=== PATIENT | female | born 2000 | race Caucasian/White ===

== ENCOUNTER 2021-09-03 22:37 | Emergency (ER) | payer MEDICAID, SELFPAY ==
[2021-09-03 22:57] VITALS: BP 123/78; PULSE 108; RESP 16; TEMP 36.7; O2SAT 92; BMI 18.8
--- NOTE | 2021-09-03 22:59 | XRR_ITS ---
PROCEDURE INFORMATION: Exam: XR Chest Exam date and time: 09/03/2021 10:59 PM Age: 20 years old Clinical indication: Fever; Prior surgery; Additional info: Fever, emesis TECHNIQUE: Imaging protocol: XR of the chest. Views: 1 view. COMPARISON: No relevant prior studies available. FINDINGS: Lungs: Low lung volumes due to suboptimal inspiration. This causes crowding of the lung markings. No consolidative pulmonary infiltrates are noted. Pleural spaces: No pleural effusion. No pneumothorax. Heart/Mediastinum: No cardiomegaly. Bones/joints: Scoliosis and postop change of the spine. XR/XR chest 1V portable [id number] IMPRESSION: 1. Low lung volumes due to suboptimal inspiration. This causes crowding of the lung markings. 2. No acute consolidative pulmonary infiltrate demonstrated. Radiation Dose CTDIVOL = (mGy): DLP = (mGy-cm)
--- NOTE | 2021-09-03 22:59 | XRR_ITS ---
PROCEDURE INFORMATION: Exam: XR Abdomen Exam date and time: 09/03/2021 10:59 PM Age: 20 years old Clinical indication: Vomiting; Prior surgery; Additional info: Emesis TECHNIQUE: Imaging protocol: XR of the abdomen. Views: Frontal supine view of the abdomen. 1 View. COMPARISON: CR XR chest 1V portable [id number] 09/03/2021 11:28 PM FINDINGS: Tubes, catheters and devices: Left upper quadrant gastrostomy tube noted, overlying the stomach. Gastrointestinal tract: Large amount of retained stool throughout the colon suggesting constipation. Nonobstructive intestinal gas pattern demonstrated. No small bowel dilatation noted. Bones/joints: Scoliosis and postop change of the spine. 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 XR/XR KUB [id number] IMPRESSION: 1. Large amount of retained stool throughout the colon suggesting constipation. 2. Nonobstructive intestinal gas pattern demonstrated. Radiation Dose CTDIVOL = (mGy): DLP = (mGy-cm)
--- NOTE | 2021-09-03 23:01 | W.ED.ABDPA2 ---
HPI - Abdominal Pain General: Chief Complaint: Nausea/Vomiting/Diarrhea Stated Complaint: vomiting, high fever Time Seen by Provider: 09/03/21 22:59 History of Present Illness: HPI narrative: 20-year-old female comes in today with complaints of nausea and vomiting. Mother believes that she is constipated which is causing her to be sick to her stomach. Patient is a severe developmental delayed patient with a history of hydrocephalus and seizures. Patient requires full care for mother since . Patient does get G-tube feedings. Patient appears mildly unwell but not toxic. Patient appears in no pain. Associated Symptoms: Reports constipation and vomiting Review of Systems General: Reports: 10 or more systems reviewed and unremarkable except in HPI and below GI: Reports: vomiting and constipation PFS ED PFSH: Medical History (Updated 09/04/21 @ 01:00 by PRIMITIVO Mckeon) Epilepsy Femur fracture Hip dysplasia History of gastrostomy tube placement Hydrocephalus Mentally disabled Surgical History (Updated 08/10/21 @ 11:02 by Kristina Rivera DO) H/O craniotomy H/O spinal fusion Family History Mother Hypertension Father Hypertension Grandmother Diabetes Hypertension Grandfather Diabetes Hypertension Social History Smoking and tobacco status: never smoked Second hand smoke exposure: No Alcohol intake: never Adopted: No Caregiver/support person: Yes Lives independently: No Household members: family Housing: Manufactured/Mobile home Marital status: Single Number of children: 0 Education level details: Adult daycare service: No Current occupational status: disabled Current occupational exposures/hazards: No Pets and animals: No History of recent travel: No Sexually active: No Current gender identity: Female Physical Exam Const: COMMON NORMALS: no acute distress HENMT: COMMON NORMALS: normocephalic, TM's normal bilaterally and Normal external nose present HEAD & SCALP: normal to inspection and normocephalic NOSE: Normal external nose present TYMPANIC MEMBRANE: TM's normal bilaterally MOUTH: Normal oral and palatal mucosa present Eye: GENERAL EYE: appearance normal, both eyes and all related structures Neck/C-Spine: COMMON NORMALS: full ROM Chest: COMMONS NORMALS: normal inspection of the chest Resp: COMMON NORMALS: normal respiratory effort Cardio: COMMON NORMALS: regular rate and regular rhythm RATE: regular rate RHYTHM: regular rhythm GI: COMMON NORMALS: Soft to palpation and non-tender AUSCULTATION: Yes normoactive bowel sounds PALPATION: Yes Soft to palpation Back/Pelvis: COMMON NORMALS: thoracic and lumbar spine normal to inspection Extremity: COMMON NORMALS: normal to inspection Neuro: COMMON NORMALS: moves all extremities Psych: COMMON NORMALS: mental status grossly normal and cooperative Skin: COMMON NORMALS: no rashes or lesions noted GENERAL SKIN EXAM: no rashes or lesions noted Course Vital Signs: Vital signs: Vital Signs Temperature 98.1 F 09/03/21 22:57 Pulse Rate 108 H 09/03/21 22:57 Respiratory Rate 16 09/03/21 22:57 Blood Pressure 123/78 09/03/21 22:57 Pulse Oximetry 92 09/03/21 22:57 MDM - Abdominal Pain MDM Narrative: Medical decision making narrative: 20-year-old female brought in by mother for concerns of nausea and vomiting. On exam abdomen soft with some bowel sounds. Skin is warm and dry. Vital signs are normal except for some mild elevation in pulse at 108. Differential diagnosis includes but not limited to bowel obstruction, constipation, urinary tract infection, sepsis. Laboratory values noted a 16,000 white count, sodium potassium 134 and 3.3. Chest x-ray was unremarkable. KUB noted constipation without signs of bowel obstruction. Urinalysis had positive nitrates and significant number of WBCs. Patient was given 1 g of ceftriaxone IV. Patient was given ondansetron for nausea and vomiting with good control. Patient will be continue with cephalexin and ondansetron at home. Reviewed recommendations for MiraLAX for constipation. Mother reports understanding and agreed to plan. Lab Data: Labs: Lab Results 09/03/21 09/03/21 09/03/21 23:20 23:20 23:20 WBC 16.7 10^3/uL H 10 ^3/uL (4.0-10.0) RBC 4.55 10^6/uL 10^6 /uL (4.1-5.3) Hgb 13.5 g/dL g/dL (11.5-15.3) Hct 40.1 % % (37.0-47.0) MCV 88.1 fl fl (81-99) MCH 29.7 pg pg (28.0-34.0) MCHC 33.7 g/dL g/dL (30.0-36.0) RDW 11.9 % L % (12.1-15.1) Plt Count 230 10^3/cmm 10^3 /cmm (130-400) MPV 9.3 fL fL (7.4-10.4) Neut % (Auto) 77.6 % % Lymph % (Auto) 9.0 % % [place] % (Auto) 11.9 % % Eos % (Auto) 0.8 % % Baso % (Auto) 0.2 % % Neut # (Auto) 12.96 10^3/uL H 1 0^3/uL (1.8-7.7) Lymph # (Auto) 1.5 10^3/uL 10^3/ uL (0.8-4.8) [place] # (Auto) 2.0 10^3/uL H 10^ 3/uL (0.2-0.9) Eos # (Auto) 0.1 10^3/uL 10^3/ uL (0.0-0.8) Baso # (Auto) 0.0 10^3/uL 10^3/ uL (0.0-0.1) Nucleated RBC % (a uto) 0 % % Nucleated RBCs # 0.0 /100WBC /100W BC Sodium 134 mmol/L L mmol /L (136-145) Potassium 3.3 mmol/L L mmol /L (3.5-5.1) Chloride 101 mmol/L mmol/L (98-107) Carbon Dioxide 19 mmol/L L mmol/ L (22-29) Anion Gap 17.3 (5-19) BUN 6 mg/dL mg/dL (6-20) Creatinine 0.2 mg/dL L mg/dL (0.5-0.9) GFR Calculation 444.2 mL/min H mL /min (90-130) Glucose 140 mg/dL H mg/dL (65-115) Calculated Osmolal ity 278 mOsm/kg L mOs m/kg (285-295) Calcium 8.5 mg/dL mg/dL (8.5-10.5) Total Bilirubin 0.4 mg/dL mg/dL (0.15-1.2) AST 10 U/L U/L (0-32) ALT 12 U/L U/L (0-33) Alkaline Phosphata se 79 IU/L IU/L (35-105) Total Protein 6.4 g/dL L g/dL (6.6-8.7) Albumin 4.2 g/dL g/dL (3.5-5.2) Globulin 2.2 g/dL g/dL (1.3-4.6) HCG, Qual Negative (Negative) Urine Color Urine Appearance Urine pH Ur Specific Gravit y Urine Protein Urine Glucose (UA) Urine Ketones Urine Blood Urine Nitrate Urine Bilirubin Urine Urobilinogen Ur Leukocyte Maria Isabel ase Urine RBC Urine WBC Ur Squamous Epith Cells Amorphous Sediment Urine Bacteria Influenza Type A A g Influenza Type B A g SARS-CoV-2 Ag (Rap id) 09/03/21 09/03/21 09/03/21 23:45 23:45 23:45 WBC RBC Hgb Hct MCV MCH MCHC RDW Plt Count MPV Neut % (Auto) Lymph % (Auto) [place] % (Auto) Eos % (Auto) Baso % (Auto) Neut # (Auto) Lymph # (Auto) [place] # (Auto) Eos # (Auto) Baso # (Auto) Nucleated RBC % (a uto) Nucleated RBCs # Sodium Potassium Chloride Carbon Dioxide Anion Gap BUN Creatinine GFR Calculation Glucose Calculated Osmolal ity Calcium Total Bilirubin AST ALT Alkaline Phosphata se Total Protein Albumin Globulin HCG, Qual Urine Color Yellow (Yellow) Urine Appearance Hazy A (CLEAR) Urine pH 5 (5-7) Ur Specific Gravit y 1.010 (1.005-1.030) Urine Protein Neg (Negative) Urine Glucose (UA) Norm (Normal) Urine Ketones Negative (Negative) Urine Blood 2+ H (Negative) Urine Nitrate Positive H (Negative) Urine Bilirubin Neg (Negative) Urine Urobilinogen Neg mg/dL mg/dL (Negative) Ur Leukocyte Maria Isabel ase 1+ H (Negative) Urine RBC 5-10 /hpf H /hpf (0-2) Urine WBC 15-25 /hpf H /hpf (0-5) Ur Squamous Epith Cells 5-10 /hpf H /hpf (0-5) Amorphous Sediment Not Reportable Urine Bacteria 4+ /hpf H /hpf (NONE) Influenza Type A A g Negative (Negative) Influenza Type B A g Negative (Negative) SARS-CoV-2 Ag (Rap id) Negative (Negative) Discharge Plan Discharge Patient Disposition: Home Clinical Impression: UTI (urinary tract infection) Qualifiers: Urinary tract infection type: site unspecified Hematuria presence: without hematuria Qualified Code(s): N39.0 - Urinary tract infection, site not specified Constipation Qualifiers: Constipation type: unspecified constipation type Qualified Code(s): K59.00 - Constipation, unspecified Condition: Stable Prescriptions: New ondansetron HCl 4 mg/5 mL solution 4 mg feeding tube Q8H PRN (Reason: nausea and vomiting) 5 Days Qty: 60 RF: 0 cephalexin 250 mg/5 mL suspension for reconstitution 500 mg feeding tube Q8H 7 Days Qty: 210 RF: 0 Miralax 17 gram/dose powder 17 g feeding tube BID Qty: 238 RF: 0 No Action lamotrigine 25 mg tablet 50 mg PO DAILY RF: 0 lamotrigine 200 mg tablet 200 mg PO BID RF: 0 cholecalciferol (vitamin D3) 50 mcg (2,000 unit) capsule 50 mcg PO DAILY RF: 0 ferrous sulfate [Iron (ferrous sulfate)] 325 mg (65 mg iron) tablet 325 mg PO DAILY RF: 0 rufinamide [Banzel] 400 mg tablet 800 mg PO BID RF: 0 chucks See Rx Instructions .ROUTE .COMPLEX Qty: 90 RF: 2 Discharge Orders: Discharge ED (Routine); Ordered 09/04/21 Ordered By: Bill Goldman Referrals: Kim Muñoz MD [Family Provider] - Kristina Rivera DO [Primary Care Provider] - Discharge Diet: Usual diet Discharge Activity: Increase activity as tolerated Patient Instructions: Constipation (ED), Urinary Tract Infection in Women (ED), Opioid Safety Activity Restrictions/Additional Instructions: Activity as tolerated. Maintain routine care. Use MiraLAX twice daily until bowel movements are regular. After that you can wait turn to just once daily. Give antibiotic 10 mL per feeding tube 3 times a day for 7 days. Use ondansetron 5 mL every 8 hours as needed for nausea or vomiting. Return to the ER for persistent fever greater than 100.4, persistent vomiting, or new concerns. Coding Level of Care Code ED Habilitative Interventionist for Sarah Hanna
[2021-09-03] MEDS: sodium chloride 0.9% 1,000 ML 999 ML IV (23:30)
[2021-09-03 23:33] LABS: Basophils % 0.2 %; Eosinophils # 0.1 10^3/uL (0.0-0.8); Eosinophils % 0.8 %; Hematocrit 40.1 % (37.0-47.0); Hemoglobin 13.5 g/dL (11.5-15.3); Lymphocytes # 1.5 10^3/uL (0.8-4.8); Mean Corpuscular HGB Conc 33.7 g/dL (30.0-36.0); Mean Corpuscular Hemoglobin 29.7 pg (28.0-34.0); Mean Corpuscular Volume 88.1 fl (81-99); Mean Platelet Volume 9.3 fL (7.4-10.4); Monocytes % 11.9 %; Neutrophils # 12.96 10^3/uL (1.8-7.7); Neutrophils % 77.6 %; Nucleated Red Blood Cells % 0 %; Platelet Count 230 10^3/cmm (130-400); Red Blood Count 4.55 10^6/uL (4.1-5.3); Red Cell Distribution Width 11.9 % (12.1-15.1); White Blood Count 16.7 10^3/uL (4.0-10.0)
[2021-09-03 23:52] LABS: HCG, Serum Qual Negative (Negative)
[2021-09-04] LABS: Alanine Aminotransferase 12 U/L (0-33); Albumin Level 4.2 g/dL (3.5-5.2); Alkaline Phosphatase 79 IU/L (35-105); Anion Gap 17.3 (5-19); Aspartate Amino Transferase 10 U/L (0-32); Blood Urea Nitrogen 6 mg/dL (6-20); Calcium 8.5 mg/dL (8.5-10.5); Carbon Dioxide 19 mmol/L (22-29); Chloride 101 mmol/L (98-107); Globulin 2.2 g/dL (1.3-4.6); Glomerular Filtration Rate 444.2 mL/min (90-130); Glucose 140 mg/dL (65-115); Osmolality Calculated 278 mOsm/kg (285-295); Potassium 3.3 mmol/L (3.5-5.1); Sodium 134 mmol/L (136-145); Total Bilirubin 0.4 mg/dL (0.15-1.2); Total Protein 6.4 g/dL (6.6-8.7)
[2021-09-04 00:06] LABS: Glucose Urine UA Norm (Normal); Ketones Urine Negative (Negative); Protein Urine Neg (Negative); Urine Appearance Hazy (CLEAR); Urine Color Yellow (Yellow); pH Urine 5 (5-7)
[2021-09-04 00:07] LABS: Add Urine Microscopic? YES; Bilirubin Urine Neg (Negative); Blood Urine 2+ (Negative); Leukocyte Esterase Urine 1+ (Negative); Nitrate Urine Positive (Negative); Urobilinogen Urine Neg (Negative)
[2021-09-04 00:08] LABS: Add Urine Culture? Yes; Bacteria Urine 4+ /hpf; WBC Urine 15-25 /hpf (0-5)
[2021-09-04] MEDS: ondansetron 2 mg/ML SDV 2 mL 4 MG IVP (00:12)
[2021-09-04 00:20] LABS: Influenza A by IFA Negative (Negative); SARS Covid-2 Antigen Negative (Negative)
[2021-09-04 00:21] LABS: Influenza B by IFA Negative (Negative)
[2021-09-04] MEDS: cefTRIAXone 1,000 MG in sodium chloride 0.9% (plus) 50 ML 100 MG IV (00:48)
[2021-09-04 01:47] VITALS: BP 115/80; PULSE 92; RESP 16; O2SAT 95
== END 2021-09-04 01:48 | disposition home or self-care (01) ==
PROVIDERS: Emergency Provider Nurse Practitioner Family; PCP Family Medicine
DX: N39.0 Urinary tract infection, site not specified (principal); K59.00 Constipation, unspecified; Z20.822 Contact with and (suspected) exposure to COVID-19
CPT/HCPCS: 51701; 71045; 74018; 80053; 81001; 81003; 84703; 85025; 87077; 87086; 87186; 87426; 87804; 96365; 96375; 99284; J0696; J2405; J7030

== ENCOUNTER 2021-09-15 17:16 | Emergency (ER) | payer MEDICAID, SELFPAY ==
[2021-09-15 17:24] VITALS: BP 138/73; PULSE 138; RESP 19; TEMP 36.3; O2SAT 94; BMI 18.8
--- NOTE | 2021-09-15 17:43 | ED_ITS ---
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 At baseline the patient has multiple seizures per day. These are generally tonic-clonic in nature and last a few minutes before spontaneously resolving. The patient requires full cares however is able to eat at times and is interactive. Currently she is on lamotrigine. She has tried other antiepileptics in the past without significant improvement/medication intolerance per chart review and history provided by parents. She does not currently have as needed antiepileptics or seizure terminating medications. She was seen in this emergency department on 09/04 and at that time diagnosed with a urinary tract infection after presenting with change in bowel habits. She completed this course and had been doing well without recurrence of fevers. Approximately 3 days ago she began having increased seizure frequency. Semiology of seizures is typical of her tonic-clonic seizures. These have progressed to the point that she has probably had at least 10-20 seizures per hour today. No other new changes in health or medication reported. No other known specific exacerbating relieving factors. She has had similar clusters of seizures in the past however these have not been very recently. Typically follows with neurology at [facility] in [place], as a child was seen and [place] at [facility]. Did have a period of time where they were in [facility] and fairly recently returned to the area. Review of Systems General: Reports: ROS unobtainable due to medical condition and ROS unobtainable due to mental status PFSH ED PFSH: Medical History Femur fracture Hip dysplasia History of gastrostomy tube placement Hydrocephalus Intractable epilepsy without status epilepticus Mentally disabled Spastic quadriplegic cerebral palsy Surgical History H/O craniotomy H/O spinal fusion Family History Mother Hypertension Father Hypertension Grandmother Diabetes Hypertension Grandfather Diabetes Hypertension Social History Smoking and tobacco status: never smoked Second hand smoke exposure: No Alcohol intake: never Adopted: No Caregiver/support person: Yes Lives independently: No Household members: family Housing: Manufactured/Mobile home Marital status: Single Number of children: 0 Education level details: Adult daycare service: No Current occupational status: disabled Current occupational exposures/hazards: No Pets and animals: No History of recent travel: No Sexually active: No Current gender identity: Female Physical Exam Narrative: EXAM NARRATIVE: GENERAL/CONSTITUTIONAL - chronically ill-appearing. Seizure activity is noted in ED course Eyes -no scleral icterus, no conjunctival injection ENMT - Atraumatic external nose and ears. Moist mucous membranes NECK - supple when not seizing, no evidence of meningismus upon reassessment. trachea midline CARDIOVASCULAR - tachycardic rate and regular rhythm. Normal peripheral perfusion RESPIRATORY -clear to auscultation bilaterally. ABDOMEN/GI - Nontender/Nondistended. G-tube present. MSK -contractures present SKIN - Warm, Dry, no obvious rashes NEURO - seizure activity present Course ED course: - Patient was seen and evaluated by me at bedside upon being called to room for possible seizure activity - Initial evaluation notable for increased tone and extension of left arm concerning for seizure. No IV access at this time and therefore I am medications ordered. - Patient placed on cardiac monitors, IV access obtained - Labs notable for leukocytosis of unclear etiology, may be reactive. No acute metabolic abnormality to explain patient's symptoms. UTI not concerning for urinary tract infection. -Called back to room for additional seizure episode similar to first, IV Ativan given. - Upon serial reexamination after treatment the patient was more relaxed. Her tachycardia had improved however, after discussion with parents, patient is not baseline. - At best baseline the patient is able to eat by mouth. - Given that the patient did not return to baseline I am concerned that the patient has subclinical seizures. I discussed the patient with her primary neurologist colleague who has seen the patient before who recommended transfer for video EEG unfortunately they do not have bed availability. - There was bed availability at [facility], I discussed the case with Dr. Alexander who declined acceptance of transfer for reasons that I am not entirely certain of the. He recommended that the patient be transferred to [facility] where she is typically seen. I explained that they do not have bed availability and that the neurology team there, who is seen the patient, recommended transfer for video EEG and continued seizure management. I explained that the wait list at [facility] was at least 48 hours if not longer and that we do not have capability of video EEG at our facility nor do I have neurology on-call. Despite all this, he declined to accept the transfer. He recommended to bridge with what ever the patient typically has for PRNs or klonipin however the patient does not typically have PRNs when I discussed this with the patient's parents. - The patient has an extensive history of being on various medications which she has had adverse reactions to, however, when it became clear that the patient would likely be in an emergency department for an extended period of time I did order an additional antiepileptic as well as her nighttime dose of her typical antiepileptic. - Patient care handed off to overnight ED physician Dr. Salazar pending continued search for accepting physician/facility with capability of neurology and video EEG for management of this highly complex patient. Vital Signs: Vital signs: Vital Signs Temperature 97.3 F L 09/15/21 17:24 Pulse Rate 72 09/16/21 02:20 Respiratory Rate 18 09/16/21 02:20 Blood Pressure 113/65 09/16/21 02:20 Pulse Oximetry 96 09/16/21 02:20 MDM - Seizure Lab Data: Labs: Lab Results 09/15/21 09/15/21 09/15/21 19:00 19:00 19:00 WBC 17.0 10^3/uL H 10 ^3/uL (4.0-10.0) RBC 4.60 10^6/uL 10^6 /uL (4.1-5.3) Hgb 13.3 g/dL g/dL (11.5-15.3) Hct 40.8 % % (37.0-47.0) MCV 88.7 fl fl (81-99) MCH 28.9 pg pg (28.0-34.0) MCHC 32.6 g/dL g/dL (30.0-36.0) RDW 12.1 % % (12.1-15.1) Plt Count 364 10^3/cmm 10^3 /cmm (130-400) MPV 9.1 fL fL (7.4-10.4) Neut % (Auto) 82.7 % % Lymph % (Auto) 9.1 % % Gillespie % (Auto) 6.8 % % Eos % (Auto) 0.5 % % Baso % (Auto) 0.3 % % Neut # (Auto) 14.02 10^3/uL H 1 0^3/uL (1.8-7.7) Lymph # (Auto) 1.6 10^3/uL 10^3/ uL (0.8-4.8) Gillespie # (Auto) 1.2 10^3/uL H 10^ 3/uL (0.2-0.9) Eos # (Auto) 0.1 10^3/uL 10^3/ uL (0.0-0.8) Baso # (Auto) 0.1 10^3/uL 10^3/ uL (0.0-0.1) Nucleated RBC % (a uto) 0 % % Nucleated RBCs # 0.0 /100WBC /100W BC Sodium 138 mmol/L mmol/L (136-145) Potassium 3.5 mmol/L mmol/L (3.5-5.1) Chloride 102 mmol/L mmol/L (98-107) Carbon Dioxide 21 mmol/L L mmol/ L (22-29) Anion Gap 18.5 (5-19) BUN 8 mg/dL mg/dL (6-20) Creatinine 0.3 mg/dL L mg/dL (0.5-0.9) GFR Calculation 278.2 mL/min H mL /min (90-130) Glucose 95 mg/dL mg/dL (65-115) Calculated Osmolal ity 284 mOsm/kg L mOs m/kg (285-295) Calcium 8.2 mg/dL L mg/dL (8.5-10.5) Total Bilirubin 0.2 mg/dL mg/dL (0.15-1.2) AST 11 U/L U/L (0-32) ALT 18 U/L U/L (0-33) Alkaline Phosphata se 82 IU/L IU/L (35-105) Total Protein 6.4 g/dL L g/dL (6.6-8.7) Albumin 4.4 g/dL g/dL (3.5-5.2) Globulin 2.0 g/dL g/dL (1.3-4.6) TSH 2.14 uIU/mL uIU/m L (0.27-4.20) Urine Color Urine Appearance Urine pH Ur Specific Gravit y Urine Protein Urine Glucose (UA) Urine Ketones Urine Blood Urine Nitrate Urine Bilirubin Urine Urobilinogen Ur Leukocyte Maria Isabel ase Urine RBC Urine WBC Ur Squamous Epith Cells Amorphous Sediment Urine Bacteria Urine Mucus Lamotrigine Cancelled 09/15/21 21:48 WBC RBC Hgb Hct MCV MCH MCHC RDW Plt Count MPV Neut % (Auto) Lymph % (Auto) Gillespie % (Auto) Eos % (Auto) Baso % (Auto) Neut # (Auto) Lymph # (Auto) Gillespie # (Auto) Eos # (Auto) Baso # (Auto) Nucleated RBC % (a uto) Nucleated RBCs # Sodium Potassium Chloride Carbon Dioxide Anion Gap BUN Creatinine GFR Calculation Glucose Calculated Osmolal ity Calcium Total Bilirubin AST ALT Alkaline Phosphata se Total Protein Albumin Globulin TSH Urine Color Yellow (Yellow) Urine Appearance Clear (CLEAR) Urine pH 5 (5-7) Ur Specific Gravit y 1.015 (1.005-1.030) Urine Protein 1+ H (Negative) Urine Glucose (UA) Norm (Normal) Urine Ketones 1+ H (Negative) Urine Blood Neg (Negative) Urine Nitrate Negative (Negative) Urine Bilirubin Neg (Negative) Urine Urobilinogen Norm mg/dL mg/dL (Negative) Ur Leukocyte Maria Isabel ase Negative (Negative) Urine RBC 0-4 /hpf H /hpf (0-2) Urine WBC 0-4 /hpf H /hpf (0-5) Ur Squamous Epith Cells 0-4 /hpf H /hpf (0-5) Amorphous Sediment Not Reportable Urine Bacteria Trace /hpf /hpf (NONE) Urine Mucus 1+ /hpf /hpf Lamotrigine Critical Care Time Critical Care Time: Critical Care Time: Yes Total Critical Care Time: 45 Attestation: This case had a high probability of a clinically significant, sudden, or life threatening deterioration of this patient's condition which required my full and direct attention, intervention and personal management. Discharge Plan Discharge Patient Disposition: Home Clinical Impression: Generalized seizure Condition: Stable Prescriptions: New Diastat 2.5 mg kit 7.5 mg OK Q12H PRN (Reason: seizure activity) Qty: 1 RF: 0 No Action lamotrigine 25 mg tablet 50 mg PO DAILY RF: 0 lamotrigine 200 mg tablet 200 mg PO BID RF: 0 cholecalciferol (vitamin D3) 50 mcg (2,000 unit) capsule 50 mcg PO DAILY RF: 0 ferrous sulfate [Iron (ferrous sulfate)] 325 mg (65 mg iron) tablet 325 mg PO DAILY RF: 0 rufinamide [Banzel] 400 mg tablet 800 mg PO BID RF: 0 chucks See Rx Instructions .ROUTE .COMPLEX Qty: 90 RF: 2 Miralax 17 gram/dose powder 17 g feeding tube BID Qty: 238 RF: 0 Discharge Orders: Discharge ED (Routine); Ordered 09/16/21 Ordered By: Shay Salazar Referrals: Kristina Rivera DO [Primary Care Provider] - Discharge Diet: Advance as tolerated Discharge Activity: Increase activity as tolerated Patient Instructions: Recurrent Seizures in Adults (ED) Activity Restrictions/Additional Instructions: Return for alteration in mental status, continued seizure activity, return if you must use the Diastat to break his seizure. Return for fever greater than 100, any other concerning symptoms. Coding Level of Care Code ED Tile Mason for Chg Fwd Documented by User: Shay Salazar DO 09/16/21 02:09 HPI - Seizure General: Chief Complaint: Seizure Stated Complaint: Seisures Time Seen by Provider: 09/15/21 17:43 PFSH ED PFSH: Medical History Femur fracture Hip dysplasia History of gastrostomy tube placement Hydrocephalus Intractable epilepsy without status epilepticus Mentally disabled Spastic quadriplegic cerebral palsy Surgical History H/O craniotomy H/O spinal fusion Family History Mother Hypertension Father Hypertension Grandmother Diabetes Hypertension Grandfather Diabetes Hypertension Social History Smoking and tobacco status: never smoked Second hand smoke exposure: No Alcohol intake: never Adopted: No Caregiver/support person: Yes Lives independently: No Household members: family Housing: Manufactured/Mobile home Marital status: Single Number of children: 0 Education level details: Adult daycare service: No Current occupational status: disabled Current occupational exposures/hazards: No Pets and animals: No History of recent travel: No Sexually active: No Current gender identity: Female Course ED course: 20-year-old female checked out to me by Dr. Srivastava at shift change. This patient has cerebral palsy and tonic-clonic seizures. She has had them chronically. She has multiple seizures per day. Her work-up this afternoon did not reveal a definite cause of her increased seizure frequency and duration today. The patient received Versed, followed by IV Ativan for seizures. She has been resting comfortably for the past 6 hours or so without any seizures. She is given her lamotrigine, which she normally takes for seizures. Level is pending. Keppra was ordered, but patient's mother adamantly refused, as the patient has been combative in the past with Keppra administration. I had a long discussion with the mother over the patient's ER course. The previous physician had discussed the patient's case with [facility] neurology in [place] who has seen her in the past. Recommendation was for video EEG studies given her increase in seizures without definite cause. They, however, do not have a bed available, and states that it could be 24 to 48 hours before they may. He also spoke with neurology at [facility], who may or may not have had a bed, but declined admission. After discussing all of this with the mother, and the fact that the patient has not had any more seizures since administration of Ativan and lamotrigine, the mother would like to take the patient home. I advised to strongly against that, and that the patient really should have further investigations of her increased seizure activity in the hospital setting. The mother, however, has been dealing with this patient's seizures for years, and feels that she is safe to go home. Has the mother seems reasonable, and knows her daughter, I will not make her sign an AMA form. We will allow discharge with rectal Diastat, to promptly return if seizures continue, or if the mother has to use Diastat on the patient. Vital Signs: Vital signs: Vital Signs Temperature 97.3 F L 09/15/21 17:24 Pulse Rate 72 09/16/21 02:20 Respiratory Rate 18 09/16/21 02:20 Blood Pressure 113/65 09/16/21 02:20 Pulse Oximetry 96 09/16/21 02:20 MDM - Seizure Lab Data: Labs: Lab Results 09/15/21 09/15/21 09/15/21 19:00 19:00 19:00 WBC 17.0 10^3/uL H 10 ^3/uL (4.0-10.0) RBC 4.60 10^6/uL 10^6 /uL (4.1-5.3) Hgb 13.3 g/dL g/dL (11.5-15.3) Hct 40.8 % % (37.0-47.0) MCV 88.7 fl fl (81-99) MCH 28.9 pg pg (28.0-34.0) MCHC 32.6 g/dL g/dL (30.0-36.0) RDW 12.1 % % (12.1-15.1) Plt Count 364 10^3/cmm 10^3 /cmm (130-400) MPV 9.1 fL fL (7.4-10.4) Neut % (Auto) 82.7 % % Lymph % (Auto) 9.1 % % Gillespie % (Auto) 6.8 % % Eos % (Auto) 0.5 % % Baso % (Auto) 0.3 % % Neut # (Auto) 14.02 10^3/uL H 1 0^3/uL (1.8-7.7) Lymph # (Auto) 1.6 10^3/uL 10^3/ uL (0.8-4.8) Gillespie # (Auto) 1.2 10^3/uL H 10^ 3/uL (0.2-0.9) Eos # (Auto) 0.1 10^3/uL 10^3/ uL (0.0-0.8) Baso # (Auto) 0.1 10^3/uL 10^3/ uL (0.0-0.1) Nucleated RBC % (a uto) 0 % % Nucleated RBCs # 0.0 /100WBC /100W BC Sodium 138 mmol/L mmol/L (136-145) Potassium 3.5 mmol/L mmol/L (3.5-5.1) Chloride 102 mmol/L mmol/L (98-107) Carbon Dioxide 21 mmol/L L mmol/ L (22-29) Anion Gap 18.5 (5-19) BUN 8 mg/dL mg/dL (6-20) Creatinine 0.3 mg/dL L mg/dL (0.5-0.9) GFR Calculation 278.2 mL/min H mL /min (90-130) Glucose 95 mg/dL mg/dL (65-115) Calculated Osmolal ity 284 mOsm/kg L mOs m/kg (285-295) Calcium 8.2 mg/dL L mg/dL (8.5-10.5) Total Bilirubin 0.2 mg/dL mg/dL (0.15-1.2) AST 11 U/L U/L (0-32) ALT 18 U/L U/L (0-33) Alkaline Phosphata se 82 IU/L IU/L (35-105) Total Protein 6.4 g/dL L g/dL (6.6-8.7) Albumin 4.4 g/dL g/dL (3.5-5.2) Globulin 2.0 g/dL g/dL (1.3-4.6) TSH 2.14 uIU/mL uIU/m L (0.27-4.20) Urine Color Urine Appearance Urine pH Ur Specific Gravit y Urine Protein Urine Glucose (UA) Urine Ketones Urine Blood Urine Nitrate Urine Bilirubin Urine Urobilinogen Ur Leukocyte Maria Isabel ase Urine RBC Urine WBC Ur Squamous Epith Cells Amorphous Sediment Urine Bacteria Urine Mucus Lamotrigine Cancelled 09/15/21 21:48 WBC RBC Hgb Hct MCV MCH MCHC RDW Plt Count MPV Neut % (Auto) Lymph % (Auto) Gillespie % (Auto) Eos % (Auto) Baso % (Auto) Neut # (Auto) Lymph # (Auto) Gillespie # (Auto) Eos # (Auto) Baso # (Auto) Nucleated RBC % (a uto) Nucleated RBCs # Sodium Potassium Chloride Carbon Dioxide Anion Gap BUN Creatinine GFR Calculation Glucose Calculated Osmolal ity Calcium Total Bilirubin AST ALT Alkaline Phosphata se Total Protein Albumin Globulin TSH Urine Color Yellow (Yellow) Urine Appearance Clear (CLEAR) Urine pH 5 (5-7) Ur Specific Gravit y 1.015 (1.005-1.030) Urine Protein 1+ H (Negative) Urine Glucose (UA) Norm (Normal) Urine Ketones 1+ H (Negative) Urine Blood Neg (Negative) Urine Nitrate Negative (Negative) Urine Bilirubin Neg (Negative) Urine Urobilinogen Norm mg/dL mg/dL (Negative) Ur Leukocyte Maria Isabel ase Negative (Negative) Urine RBC 0-4 /hpf H /hpf (0-2) Urine WBC 0-4 /hpf H /hpf (0-5) Ur Squamous Epith Cells 0-4 /hpf H /hpf (0-5) Amorphous Sediment Not Reportable Urine Bacteria Trace /hpf /hpf (NONE) Urine Mucus 1+ /hpf /hpf Lamotrigine Discharge Plan Discharge Patient Disposition: Home Clinical Impression: Generalized seizure Condition: Stable Prescriptions: New Diastat 2.5 mg kit 7.5 mg OK Q12H PRN (Reason: seizure activity) Qty: 1 RF: 0 No Action lamotrigine 25 mg tablet 50 mg PO DAILY RF: 0 lamotrigine 200 mg tablet 200 mg PO BID RF: 0 cholecalciferol (vitamin D3) 50 mcg (2,000 unit) capsule 50 mcg PO DAILY RF: 0 ferrous sulfate [Iron (ferrous sulfate)] 325 mg (65 mg iron) tablet 325 mg PO DAILY RF: 0 rufinamide [Banzel] 400 mg tablet 800 mg PO BID RF: 0 chucks See Rx Instructions .ROUTE .COMPLEX Qty: 90 RF: 2 Miralax 17 gram/dose powder 17 g feeding tube BID Qty: 238 RF: 0 Discharge Orders: Discharge ED (Routine); Ordered 09/16/21 Ordered By: Shay Salazar Referrals: Kristina Rivera DO [Primary Care Provider] - Discharge Diet: Advance as tolerated Discharge Activity: Increase activity as tolerated Patient Instructions: Recurrent Seizures in Adults (ED) Activity Restrictions/Additional Instructions: Return for alteration in mental status, continued seizure activity, return if you must use the Diastat to break his seizure. Return for fever greater than 100, any other concerning symptoms. Coding Level of Care Code ED Tile Mason for Sarah Hanna
[2021-09-15] MEDS: midazolam 1 mg/mL INJ 2 mL 5 MG IM (18:10)
[2021-09-15 19:04] LABS: Basophils # 0.1 10^3/uL (0.0-0.1); Basophils % 0.3 %; Eosinophils # 0.1 10^3/uL (0.0-0.8); Eosinophils % 0.5 %; Hematocrit 40.8 % (37.0-47.0); Hemoglobin 13.3 g/dL (11.5-15.3); Lymphocytes # 1.6 10^3/uL (0.8-4.8); Lymphocytes % 9.1 %; Mean Corpuscular HGB Conc 32.6 g/dL (30.0-36.0); Mean Corpuscular Hemoglobin 28.9 pg (28.0-34.0); Mean Corpuscular Volume 88.7 fl (81-99); Mean Platelet Volume 9.1 fL (7.4-10.4); Monocytes # 1.2 10^3/uL (0.2-0.9); Monocytes % 6.8 %; Neutrophils # 14.02 10^3/uL (1.8-7.7); Neutrophils % 82.7 %; Nucleated Red Blood Cells % 0 %; Platelet Count 364 10^3/cmm (130-400); Red Cell Distribution Width 12.1 % (12.1-15.1)
[2021-09-15 19:33] LABS: Alanine Aminotransferase 18 U/L (0-33); Albumin Level 4.4 g/dL (3.5-5.2); Alkaline Phosphatase 82 IU/L (35-105); Anion Gap 18.5 (5-19); Aspartate Amino Transferase 11 U/L (0-32); Blood Urea Nitrogen 8 mg/dL (6-20); Calcium 8.2 mg/dL (8.5-10.5); Carbon Dioxide 21 mmol/L (22-29); Chloride 102 mmol/L (98-107); Glomerular Filtration Rate 278.2 mL/min (90-130); Glucose 95 mg/dL (65-115); Osmolality Calculated 284 mOsm/kg (285-295); Potassium 3.5 mmol/L (3.5-5.1); Sodium 138 mmol/L (136-145); Thyroid Stimulating Hormone 2.14 uIU/mL (0.27-4.20); Total Bilirubin 0.2 mg/dL (0.15-1.2); Total Protein 6.4 g/dL (6.6-8.7)
[2021-09-15] MEDS: LORazepam 2 mg/mL INJ 1 mL 1 MG IVP (19:35)
[2021-09-15 20:04] VITALS: BP 117/84; PULSE 120; RESP 24; O2SAT 94
[2021-09-15 21:34] VITALS: BP 101/51; PULSE 97; RESP 23; O2SAT 93
[2021-09-15 21:57] LABS: Add Urine Culture? No; Add Urine Microscopic? YES; Bacteria Urine TRACE /hpf; Bilirubin Urine Neg (Negative); Blood Urine Neg (Negative); Glucose Urine UA Norm (Normal); Ketones Urine 1+ (Negative); Leukocyte Esterase Urine Negative (Negative); Mucus Urine 1+ /hpf; Nitrate Urine Negative (Negative); Protein Urine 1+ (Negative); RBC Urine 0-4 /hpf (0-2); Specific Gravity, Urine 1.015 (1.005-1.030); Squamous Epithelial Cell Urine 0-4 /hpf (0-5); Urine Appearance Clear (CLEAR); Urine Color Yellow (Yellow); Urobilinogen Urine Norm (Negative); WBC Urine 0-4 /hpf (0-5); pH Urine 5 (5-7)
[2021-09-15 22:29] VITALS: BP 113/56; PULSE 93; RESP 18; O2SAT 93
[2021-09-16] MEDS: lamoTRIgine 100 mg Tablet 250 MG PEG-TUBE (01:45)
[2021-09-16 02:20] VITALS: BP 113/65; PULSE 72; RESP 18; O2SAT 96
== END 2021-09-16 02:24 | disposition home or self-care (01) ==
PROVIDERS: Emergency Medicine; Emergency Provider Emergency Medicine; PCP Family Medicine
DX: G40.409 Other generalized epilepsy and epileptic syndromes, not intractable, without status epilepticus (principal); G80.0 Spastic quadriplegic cerebral palsy
CPT/HCPCS: 80053; 80175; 81001; 84443; 85025; 96372; 96374; 99284; J2060; J2250

== ENCOUNTER 2022-02-03 18:07 | Emergency (ER) | payer MEDICAID, SELFPAY ==
[2022-02-03 18:33] VITALS: BP 143/98; PULSE 114; RESP 17; TEMP 36.6; O2SAT 97; BMI 17.9
[2022-02-03] MEDS: LORazepam 2 mg/mL INJ 1 mL 1 MG IM (19:50)
--- NOTE | 2022-02-03 20:00 | W.ED.SEIZURE ---
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 she has a chronic history of seizures mother states she typically has seizures daily has had more seizures today than typical she gave her rectal Diastat it has improved she states she has more seizures at times when she has urinary tract infection she does see her neurologist next week denies any fevers denies any head injuries Review of Systems General: Reports: ROS unobtainable due to mental status PFSH ED PFSH: Medical History Femur fracture Hip dysplasia History of gastrostomy tube placement Hydrocephalus Intractable epilepsy without status epilepticus Mentally disabled Spastic quadriplegic cerebral palsy Surgical History H/O craniotomy H/O spinal fusion Family History Mother Hypertension Father Hypertension Grandmother Diabetes Hypertension Grandfather Diabetes Hypertension Social History Smoking and tobacco status: never smoked Second hand smoke exposure: No Alcohol intake: never Adopted: No Caregiver/support person: Yes Lives independently: No Household members: family Housing: Manufactured/Mobile home Marital status: Single Number of children: 0 Education level details: Adult daycare service: No Current occupational status: disabled Current occupational exposures/hazards: No Pets and animals: No History of recent travel: No Sexually active: No Current gender identity: Female Physical Exam Const: COMMON NORMALS: negative for patient oriented x3 OTHER: Spastic quadriplegia at her baseline HENMT: COMMON NORMALS: normocephalic and atraumatic HEAD & SCALP: normocephalic and atraumatic Eye: COMMON NORMALS: Equal, round and reactive pupils present PUPIL: Yes Equal, round and reactive pupils present Neck/C-Spine: COMMON NORMALS: no meningeal signs Chest: COMMONS NORMALS: normal inspection of the chest Resp: COMMON NORMALS: normal respiratory effort and clear to auscultation bilaterally AUSCULTATION: clear to auscultation bilaterally Cardio: COMMON NORMALS: regular rate and regular rhythm RATE: regular rate RHYTHM: regular rhythm GI: COMMON NORMALS: Normal to inspection, nondistended, normoactive bowel sounds present and Soft to palpation PALPATION: Yes Soft to palpation Extremity: COMMON NORMALS: normal to inspection Neuro: COMMON NORMALS: negative for patient oriented x3 MENINGEAL SIGNS: Yes no meningeal signs Psych: COMMON NORMALS: negative for mental status grossly normal Skin: COMMON NORMALS: no rashes or lesions noted and no wounds GENERAL SKIN EXAM: no rashes or lesions noted Course Vital Signs: Vital signs: Vital Signs Temperature 97.8 F 02/03/22 18:33 Pulse Rate 114 H 02/03/22 18:33 Respiratory Rate 17 02/03/22 18:33 Blood Pressure 143/98 02/03/22 18:33 Pulse Oximetry 97 02/03/22 18:33 MDM - Seizure MDM Narrative Medical decision making narrative: Patient presents with increased seizure activity she does have a urinary tract infection we will treat her UTI she is stable for discharge is to follow-up PCP and return if worsening. Lab Data Result diagrams: 02/03/22 20:01 02/03/22 20:01 Labs: Laboratory Results WBC 14.3 10^3/uL (4.0-10.0) H 02/03/22 20: RBC 5.26 10^6/uL (4.1-5.3) 02/03/22 20:01 Hgb 14.2 g/dL (11.5-15.3) 02/03/22 20:01 Hct 44.7 % (37.0-47.0) 02/03/22 20: MCV 85.0 fl (81-99) 02/03/22 20: MCH 27.0 pg (28.0-34.0) L 02/03/22 20: MCHC 31.8 g/dL (30.0-36.0) 02/03/22 20:01 RDW 11.8 % (12.1-15.1) L 02/03/22 20:01 Plt Count 419 10^3/cmm (130-400) H 02/03/22 20:01 MPV 8.8 fL (7.4-10.4) 02/03/22 20:01 Neut % (Auto) 68.6 % 02/03/22 20:01 Lymph % (Auto) 19.0 % 02/03/22 20:01 [place] % (Auto) 9.3 % 02/03/22 20:01 Eos % (Auto) 1.9 % 02/03/22 20:01 Baso % (Auto) 0.6 % 02/03/22 20:01 Neut # (Auto) 9.80 10^3/uL (1.8-7.7) H 02/03/22 20:01 Lymph # (Auto) 2.7 10^3/uL (0.8-4.8) 02/03/22 20:01 [place] # (Auto) 1.3 10^3/uL (0.2-0.9) H 02/03/22 20:01 Eos # (Auto) 0.3 10^3/uL (0.0-0.8) 02/03/22 20:01 Baso # (Auto) 0.1 10^3/uL (0.0-0.1) 02/03/22 20:01 Nucleated RBC % (auto) 0 % 02/03/22 20: Nucleated RBCs # 0.0 /100WBC 02/03/22 20:01 Sodium 139 mmol/L (136-145) 02/03/22 20: Potassium 3.9 mmol/L (3.5-5.1) 02/03/22 20: Chloride 101 mmol/L (98-107) 02/03/22 20: Carbon Dioxide 23 mmol/L (22-29) 02/03/22 20: Anion Gap 18.9 (5-19) 02/03/22 20:01 BUN 8 mg/dL (6-20) 02/03/22 20:01 Creatinine 0.3 mg/dL (0.5-0.9) L 02/03/22 20: GFR Calculation 275.7 mL/min (90-130) H 02/03/22 20: Glucose 112 mg/dL (65-115) 02/03/22 20: Calculated Osmolality 287 mOsm/kg (285-295) 02/03/22 20: Calcium 9.9 mg/dL (8.5-10.5) 02/03/22 20:01 Urine Color Yellow (Yellow) 02/03/22 20:05 Urine Appearance Clear (CLEAR) 02/03/22 20:05 Urine pH 6.5 (5-7) 02/03/22 20:05 Ur Specific [place] 1.010 (1.005-1.030) 02/03/22 20:05 Urine Protein Neg (Negative) 02/03/22 20:05 Urine Glucose (UA) Norm (Normal) 02/03/22 20:05 Urine Ketones Negative (Negative) 02/03/22 20:05 Urine Blood Neg (Negative) 02/03/22 20:05 Urine Nitrate Positive (Negative) H 02/03/22 20:05 Urine Bilirubin Neg (Negative) 02/03/22 20:05 Urine Urobilinogen Norm mg/dL (Negative) 02/03/22 20:05 Ur Leukocyte Esterase Negative (Negative) 02/03/22 20:05 Urine RBC 0-4 /hpf (0-2) H 02/03/22 20:05 Urine WBC 0-4 /hpf (0-5) H 02/03/22 20:05 Ur Squamous Epith Cells 15-25 /hpf (0-5) H 02/03/22 20:05 Amorphous Sediment Not Reportable 02/03/22 20:05 Urine Bacteria 4+ /hpf (NONE) H 02/03/22 20:05 Discharge Plan Discharge Patient Disposition: Home Clinical Impression: Acute cystitis Condition: Stable Prescriptions: New cephalexin 250 mg/5 mL suspension for reconstitution 500 mg PO TID 7 Days Qty: 210 0RF No Action lamotrigine 25 mg tablet 50 mg PO DAILY 0RF Rx Instructions: Take two tablets at night with the 200mg tablet for a total for 200mg in the morning and 250mg at night lamotrigine 200 mg tablet 200 mg PO BID 0RF Rx Instructions: Take 200mg in the morning and 250mg in the evening cholecalciferol (vitamin D3) 50 mcg (2,000 unit) capsule 50 mcg PO DAILY 0RF ferrous sulfate [Iron (ferrous sulfate)] 325 mg (65 mg iron) tablet 325 mg PO DAILY 0RF rufinamide [Banzel] 400 mg tablet 800 mg PO BID 0RF arnaldo See Rx Instructions .ROUTE .COMPLEX Qty: 90 2RF Rx Instructions: change tid; change tid Miralax 17 gram/dose powder 17 g feeding tube BID Qty: 238 0RF Diastat 2.5 mg kit 7.5 mg [place] Q12H PRN (Reason: seizure activity) Qty: 1 0RF Discharge Orders: Discharge ED (Routine); Ordered 02/03/22 Ordered By: Mauricio Izquierdo Referrals: Kristina Rivera DO [Primary Care Provider] - 1-3 days Discharge Diet: Advance as tolerated Discharge Activity: Resume usual activity Patient Instructions: Urinary Tract Infection in Women (DC), Recurrent Seizures in Adults (ED) Coding Level of Care Code ED Frame Table Operator Helper for Chg Fwd Exam Comprehensive
[2022-02-03 20:06] LABS: Basophils # 0.1 10^3/uL (0.0-0.1); Basophils % 0.6 %; Eosinophils # 0.3 10^3/uL (0.0-0.8); Eosinophils % 1.9 %; Hematocrit 44.7 % (37.0-47.0); Hemoglobin 14.2 g/dL (11.5-15.3); Lymphocytes # 2.7 10^3/uL (0.8-4.8); Mean Corpuscular HGB Conc 31.8 g/dL (30.0-36.0); Mean Platelet Volume 8.8 fL (7.4-10.4); Monocytes # 1.3 10^3/uL (0.2-0.9); Monocytes % 9.3 %; Neutrophils % 68.6 %; Nucleated Red Blood Cells % 0 %; Platelet Count 419 10^3/cmm (130-400); Red Blood Count 5.26 10^6/uL (4.1-5.3); Red Cell Distribution Width 11.8 % (12.1-15.1); White Blood Count 14.3 10^3/uL (4.0-10.0)
[2022-02-03 20:22] LABS: Anion Gap 18.9 (5-19); Blood Urea Nitrogen 8 mg/dL (6-20); Calcium 9.9 mg/dL (8.5-10.5); Carbon Dioxide 23 mmol/L (22-29); Chloride 101 mmol/L (98-107); Glomerular Filtration Rate 275.7 mL/min (90-130); Glucose 112 mg/dL (65-115); Osmolality Calculated 287 mOsm/kg (285-295); Potassium 3.9 mmol/L (3.5-5.1); Sodium 139 mmol/L (136-145)
--- NOTE | 2022-02-03 20:55 | PC.NURSE ---
Report given to JOVANI Menon
[2022-02-03 20:58] LABS: Add Urine Microscopic? YES; Bilirubin Urine Neg (Negative); Blood Urine Neg (Negative); Glucose Urine UA Norm (Normal); Ketones Urine Negative (Negative); Leukocyte Esterase Urine Negative (Negative); Nitrate Urine Positive (Negative); Protein Urine Neg (Negative); Urine Appearance Clear (CLEAR); Urine Color Yellow (Yellow); Urobilinogen Urine Norm (Negative); pH Urine 6.5 (5-7)
[2022-02-03 20:59] LABS: Add Urine Culture? No; Bacteria Urine 4+ /hpf; RBC Urine 0-4 /hpf (0-2); Squamous Epithelial Cell Urine 15-25 /hpf (0-5); WBC Urine 0-4 /hpf (0-5)
[2022-02-03] MEDS: cefTRIAXone 1,000 MG in lidocaine 1% 2.1 ML 999 MG IM (21:29)
[2022-02-03 21:34] VITALS: RESP 20
== END 2022-02-03 21:34 | disposition home or self-care (01) ==
PROVIDERS: Emergency Provider Emergency Medicine; PCP Family Medicine
DX: N30.00 Acute cystitis without hematuria (principal); G80.0 Spastic quadriplegic cerebral palsy
CPT/HCPCS: 80048; 81001; 85025; 96372; 99283; J0696; J2060

== ENCOUNTER 2022-02-27 19:54 | Emergency (ER) | payer MEDICAID, SELFPAY ==
[2022-02-27 19:55] VITALS: BP 129/85; PULSE 115; RESP 20; TEMP 36.4; O2SAT 96; BMI 17.9
--- NOTE | 2022-02-27 20:33 | ED_ITS ---
HPI - Seizure General: Chief Complaint: Seizure Stated Complaint: Seizures Time Seen by Provider: 02/27/22 20:17 Source: family Mode of arrival: wheelchair Limitations: physical limitation History of Present Illness: HPI Narrative: 21-year-old female with complicated medical history she had a intrauterine stroke that resulted in cerebral palsy along with spastic quadriplegia. Patient has a long history of seizures currently on Lamotrigine. Mother states that over the last 2 to 3 days she has had increased seizure-like activity patient is here is at her baseline mother states that she does get urinary tract infections and seems to increase her seizure frequency. She is had no fevers no vomiting no diarrhea. PFSH ED PFSH: Medical History Femur fracture Hip dysplasia History of gastrostomy tube placement Hydrocephalus Intractable epilepsy without status epilepticus Mentally disabled Spastic quadriplegic cerebral palsy Surgical History H/O craniotomy H/O spinal fusion Family History Mother Hypertension Father Hypertension Grandmother Diabetes Hypertension Grandfather Diabetes Hypertension Social History Smoking and tobacco status: never smoked Second hand smoke exposure: No Alcohol intake: never Adopted: No Caregiver/support person: Yes Lives independently: No Household members: family Housing: Manufactured/Mobile home Marital status: Single Number of children: 0 Education level details: Adult daycare service: No Current occupational status: disabled Current occupational exposures/hazards: No Pets and animals: No History of recent travel: No Sexually active: No Current gender identity: Female Course Vital Signs: Vital signs: Vital Signs Temperature 97.6 F 02/27/22 19:55 Pulse Rate 86 02/27/22 21:13 Respiratory Rate 18 02/27/22 21:13 Blood Pressure 152/84 02/27/22 21:13 Pulse Oximetry 98 02/27/22 21:13 MDM - Seizure MDM Narrative Medical decision making narrative: Patient presents here with seizures she has had no seizures here has been well- appearing here blood work is normal she does have a acute cystitis will give her dose of Rocephin here and start her on Keflex she is to follow-up with her neurologist and PCP and return if worsening she understands agrees plan. Lab Data Result diagrams: 02/27/22 21:04 02/27/22 21:04 Labs: Laboratory Results WBC 10.7 10^3/uL (4.0-10.0) H 02/27/22 21:04 RBC 4.98 10^6/uL (4.1-5.3) 02/27/22 21:04 Hgb 13.1 g/dL (11.5-15.3) 02/27/22 21:04 Hct 41.8 % (37.0-47.0) 02/27/22 21:04 MCV 83.9 fl (81-99) 02/27/22 21:04 MCH 26.3 pg (28.0-34.0) L 02/27/22 21:04 MCHC 31.3 g/dL (30.0-36.0) 02/27/22 21:04 RDW 12.2 % (12.1-15.1) 02/27/22 21:04 Plt Count 307 10^3/cmm (130-400) 02/27/22 21:04 MPV 9.4 fL (7.4-10.4) 02/27/22 21:04 Neut % (Auto) 67.6 % 02/27/22 21:04 Lymph % (Auto) 20.5 % 02/27/22 21:04 [place] % (Auto) 7.4 % 02/27/22 21:04 Eos % (Auto) 3.7 % 02/27/22 21:04 Baso % (Auto) 0.6 % 02/27/22 21:04 Neut # (Auto) 7.24 10^3/uL (1.8-7.7) 02/27/22 21:04 Lymph # (Auto) 2.2 10^3/uL (0.8-4.8) 02/27/22 21:04 [place] # (Auto) 0.8 10^3/uL (0.2-0.9) 02/27/22 21:04 Eos # (Auto) 0.4 10^3/uL (0.0-0.8) 02/27/22 21:04 Baso # (Auto) 0.1 10^3/uL (0.0-0.1) 02/27/22 21:04 Nucleated RBC % (auto) 0 % 02/27/22 21:04 Nucleated RBCs # 0.0 /100WBC 02/27/22 21:04 Sodium 141 mmol/L (136-145) 02/27/22 21:04 Potassium 3.9 mmol/L (3.5-5.1) 02/27/22 21:04 Chloride 104 mmol/L (98-107) 02/27/22 21:04 Carbon Dioxide 25 mmol/L (22-29) 02/27/22 21:04 Anion Gap 15.9 (5-19) 02/27/22 21:04 BUN 9 mg/dL (6-20) 02/27/22 21:04 Creatinine 0.3 mg/dL (0.5-0.9) L 02/27/22 21:04 GFR Calculation 275.7 mL/min (90-130) H 02/27/22 21:04 Glucose 89 mg/dL (65-115) 02/27/22 21:04 Calculated Osmolality 290 mOsm/kg (285-295) 02/27/22 21:04 Calcium 9.3 mg/dL (8.5-10.5) 02/27/22 21:04 Total Bilirubin 0.2 mg/dL (0.15-1.2) 02/27/22 21:04 AST 10 U/L (0-32) 02/27/22 21:04 ALT 11 U/L (0-33) 02/27/22 21:04 Alkaline Phosphatase 81 IU/L (35-105) 02/27/22 21:04 Total Protein 7.1 g/dL (6.6-8.7) 02/27/22 21:04 Albumin 4.9 g/dL (3.5-5.2) 02/27/22 21:04 Globulin 2.2 g/dL (1.3-4.6) 02/27/22 21:04 Urine Color Yellow (Yellow) 02/27/22 21:09 Urine Appearance Cloudy (CLEAR) 02/27/22 21:09 Urine pH 6 (5-7) 02/27/22 21:09 Ur Specific [place] 1.020 (1.005-1.030) 02/27/22 21:09 Urine Protein Neg (Negative) 02/27/22 21:09 Urine Glucose (UA) Norm (Normal) 02/27/22 21:09 Urine Ketones Negative (Negative) 02/27/22 21:09 Urine Blood 3+ (Negative) H 02/27/22 21:09 Urine Nitrate Positive (Negative) H 02/27/22 21:09 Urine Bilirubin Neg (Negative) 02/27/22 21:09 Urine Urobilinogen Norm mg/dL (Negative) 02/27/22 21:09 Ur Leukocyte Esterase Negative (Negative) 02/27/22 21:09 Urine RBC 10-15 /hpf (0-2) H 02/27/22 21:09 Urine WBC 5-10 /hpf (0-5) H 02/27/22 21:09 Ur Squamous Epith Cells 0-4 /hpf (0-5) H 02/27/22 21:09 Amorphous Sediment Not Reportable 02/27/22 21:09 Urine Bacteria 2+ /hpf (NONE) H 02/27/22 21:09 Discharge Plan Discharge Patient Disposition: Home Clinical Impression: Generalized seizure Acute cystitis Qualifiers: Hematuria presence: without hematuria Qualified Code(s): N30.00 - Acute cystitis without hematuria Condition: Stable Prescriptions: New cephalexin 250 mg/5 mL suspension for reconstitution 500 mg PO Q6H 7 Days Qty: 280 0RF No Action lamotrigine 25 mg tablet 50 mg PO DAILY 0RF Rx Instructions: Take two tablets at night with the 200mg tablet for a total for 200mg in the morning and 250mg at night lamotrigine 200 mg tablet 200 mg PO BID 0RF Rx Instructions: Take 200mg in the morning and 250mg in the evening cholecalciferol (vitamin D3) 50 mcg (2,000 unit) capsule 50 mcg PO DAILY 0RF ferrous sulfate [Iron (ferrous sulfate)] 325 mg (65 mg iron) tablet 325 mg PO DAILY 0RF rufinamide [Banzel] 400 mg tablet 800 mg PO BID 0RF arnaldo See Rx Instructions .ROUTE .COMPLEX Qty: 90 2RF Rx Instructions: change tid; change tid Miralax 17 gram/dose powder 17 g feeding tube BID Qty: 238 0RF Diastat 2.5 mg kit 7.[address] Q12H PRN (Reason: seizure activity) Qty: 1 0RF Discharge Orders: Discharge ED (Routine); Ordered 02/27/22 Ordered By: Mauricio Izquierdo Referrals: Kristina Rivera DO [Primary Care Provider] - 1-3 days Discharge Diet: Advance as tolerated Discharge Activity: Resume usual activity Patient Instructions: Urinary Tract Infection in Women (ED), Recurrent Seizures in Adults (ED) Coding Level of Care Code ED Ambulance Paramedic for Sarah Hanna
[2022-02-27 21:13] VITALS: BP 152/84; PULSE 86; RESP 18; O2SAT 98
[2022-02-27 21:14] LABS: Basophils # 0.1 10^3/uL (0.0-0.1); Basophils % 0.6 %; Eosinophils # 0.4 10^3/uL (0.0-0.8); Eosinophils % 3.7 %; Hematocrit 41.8 % (37.0-47.0); Hemoglobin 13.1 g/dL (11.5-15.3); Lymphocytes # 2.2 10^3/uL (0.8-4.8); Lymphocytes % 20.5 %; Mean Corpuscular HGB Conc 31.3 g/dL (30.0-36.0); Mean Corpuscular Hemoglobin 26.3 pg (28.0-34.0); Mean Corpuscular Volume 83.9 fl (81-99); Mean Platelet Volume 9.4 fL (7.4-10.4); Monocytes # 0.8 10^3/uL (0.2-0.9); Monocytes % 7.4 %; Neutrophils # 7.24 10^3/uL (1.8-7.7); Neutrophils % 67.6 %; Nucleated Red Blood Cells % 0 %; Platelet Count 307 10^3/cmm (130-400); Red Blood Count 4.98 10^6/uL (4.1-5.3); Red Cell Distribution Width 12.2 % (12.1-15.1); White Blood Count 10.7 10^3/uL (4.0-10.0)
[2022-02-27 21:27] LABS: Add Urine Microscopic? YES; Bilirubin Urine Neg (Negative); Blood Urine 3+ (Negative); Glucose Urine UA Norm (Normal); Ketones Urine Negative (Negative); Leukocyte Esterase Urine Negative (Negative); Nitrate Urine Positive (Negative); Protein Urine Neg (Negative); Urine Appearance Cloudy (CLEAR); Urine Color Yellow (Yellow); Urobilinogen Urine Norm (Negative); pH Urine 6 (5-7)
[2022-02-27 21:28] LABS: Add Urine Culture? Yes; Bacteria Urine 2+ /hpf; Squamous Epithelial Cell Urine 0-4 /hpf (0-5)
[2022-02-27 22:07] LABS: Alanine Aminotransferase 11 U/L (0-33); Albumin Level 4.9 g/dL (3.5-5.2); Alkaline Phosphatase 81 IU/L (35-105); Anion Gap 15.9 (5-19); Aspartate Amino Transferase 10 U/L (0-32); Blood Urea Nitrogen 9 mg/dL (6-20); Calcium 9.3 mg/dL (8.5-10.5); Carbon Dioxide 25 mmol/L (22-29); Chloride 104 mmol/L (98-107); Globulin 2.2 g/dL (1.3-4.6); Glomerular Filtration Rate 275.7 mL/min (90-130); Glucose 89 mg/dL (65-115); Osmolality Calculated 290 mOsm/kg (285-295); Potassium 3.9 mmol/L (3.5-5.1); Sodium 141 mmol/L (136-145); Total Bilirubin 0.2 mg/dL (0.15-1.2); Total Protein 7.1 g/dL (6.6-8.7)
[2022-02-27] MEDS: cefTRIAXone 1,000 MG in sodium chloride 0.9% (plus) 50 ML 100 MG IV (22:41)
== END 2022-02-27 23:30 | disposition home or self-care (01) ==
PROVIDERS: Emergency Provider Emergency Medicine; PCP Family Medicine
DX: N30.00 Acute cystitis without hematuria (principal); G80.0 Spastic quadriplegic cerebral palsy
CPT/HCPCS: 80053; 81001; 85025; 87077; 87086; 87186; 96365; 99284; J0696